=== PATIENT | male | born 1970 | race Asian ===

== ENCOUNTER 2017-09-09 17:38 | Inpatient (IN) | payer BC, OTHER ==
[2017-09-09 20:45] LABS: ADD MAN DIFF? NO
[2017-09-09 20:49] LABS: WHITE BLOOD COUNT 18.7 10^3/ul (4.8-10.8)
[2017-09-09 20:49] LABS: BASOPHIL # 0.1 10^3/ul (0.0-0.1); BASOPHILS % 0.4 % (0.0-2.0); EOSINOPHILS # 0.2 10^3/ul (0.0-0.5); EOSINOPHILS % 0.8 % (0.0-7.0); HEMOGLOBIN 16.1 g/dl (14.0-18.0); LYMPHOCYTES # 3.8 10^3/ul (0.8-2.9); LYMPHOCYTES % 20.1 % (15.0-51.0); MEAN CORPUSCULAR HEMOGLOBIN 28.3 pg (29.0-33.0); MEAN CORPUSCULAR HGB CONC 33.5 g/dl (32.0-37.0); MEAN CORPUSCULAR VOLUME 84.4 fl (82.0-101.0); MONOCYTE # 1.3 10^3/ul (0.3-0.9); NEUTROPHIL # 13.3 10^3/ul (1.6-7.5); NEUTROPHILS % 71.2 % (39.0-77.0); PLATELET COUNT 354 10^3/UL (140-415); RED BLOOD COUNT 5.69 10^6/ul (4.70-6.10); RED CELL DISTRIBUTION WIDTH 12.6 % (11.5-14.5)
[2017-09-09 21:07] LABS: LACTIC ACID 1.5 mmol/L (0.5-2.0)
[2017-09-09 21:09] LABS: ALANINE AMINOTRANSFERASE 33 IU/L (13-69); ALBUMIN/GLOBULIN RATIO 1.13; ALKALINE PHOSPHATASE 55 IU/L (42-121); ANION GAP 20 (8-16); ASPARTATE AMINO TRANSFERASE 21 IU/L (15-46); BILIRUBIN,INDIRECT 0.5 mg/dl (0-1.1); BILIRUBIN,TOTAL 0.5 mg/dl (0.2-1.3); BLOOD UREA NITROGEN 13 mg/dl (7-20); CALCIUM 9.7 mg/dl (8.4-10.2); CARBON DIOXIDE 25 mmol/L (21-31); CHLORIDE 101 mmol/L (97-110); CREATININE 1.09 mg/dl (0.61-1.24); GLUCOSE 110 mg/dl (70-220); INR 0.94; LIPASE 113 U/L (23-300); POTASSIUM 4.1 mmol/L (3.5-5.1); PROTIME 12.7 Sec (11.9-14.9); SODIUM 142 mmol/L (135-144); TOTAL PROTEIN 9.4 g/dl (6.1-8.1)
[2017-09-09 21:10] LABS: PARTIAL THROMBOPLASTIN TIME 31.8 Sec (25.0-35.0)
[2017-09-09] MEDS: morphine 4 MG/ML VIAL IV (21:12)
[2017-09-09] MEDS: ACETAMINOPHEN 325 MG TAB PO (21:12)
[2017-09-09] MEDS: SODIUM CHLORIDE 0.9% 1L BAG IV* (21:12)
[2017-09-09] MEDS: ONDANSETRON 4 MG INJ IV (21:12)
[2017-09-09] MEDS: PIPER-TAZO 3.375 GM IV (PMX) 100 ML IVPB (21:12)
[2017-09-09 23:17] LABS: LACTIC ACID 0.8 mmol/L (0.5-2.0)
[2017-09-10] MEDS ORDERED: morphine 2 MG INJ IV (00:30)
[2017-09-10] MEDS ORDERED: ALBUTEROL/IPRATROPIUM (NEB) 3 ML AMP HHN (00:30)
[2017-09-10] MEDS ORDERED: ACETAMINOPHEN 325 MG TAB PO (00:30)
[2017-09-10] MEDS ORDERED: DOCUSATE SODIUM 100 MG CAP PO (00:30)
[2017-09-10] MEDS ORDERED: ZOLPIDEM 5 MG TAB PO (00:30)
[2017-09-10] MEDS: 1/2 NS + KCL 20 MEQ 1,000 ML IV ×2 (00:44→10:26)
[2017-09-10 01:36] LABS: LACTIC ACID 0.8 mmol/L (0.5-2.0)
[2017-09-10] MEDS: HYDROCODONE/APAP (5/325) TAB PO ×2 (04:44→17:29)
[2017-09-10] MEDS: ONDANSETRON 4 MG INJ IV ×3 (04:51→20:30)
[2017-09-10] MEDS: PIPER-TAZO 3.375 GM IV (PMX) 100 ML IVPB ×4 (05:39→23:44)
[2017-09-10 05:43] LABS: ADD MAN DIFF? NO
[2017-09-10 05:49] LABS: BASOPHIL # 0.1 10^3/ul (0.0-0.1); BASOPHILS % 0.4 % (0.0-2.0); EOSINOPHILS # 0.2 10^3/ul (0.0-0.5); HEMATOCRIT 41.4 % (42.0-52.0); HEMOGLOBIN 13.7 g/dl (14.0-18.0); LYMPHOCYTES # 2.1 10^3/ul (0.8-2.9); LYMPHOCYTES % 19.2 % (15.0-51.0); MEAN CORPUSCULAR HEMOGLOBIN 28.1 pg (29.0-33.0); MEAN CORPUSCULAR HGB CONC 33.1 g/dl (32.0-37.0); MEAN CORPUSCULAR VOLUME 84.8 fl (82.0-101.0); MEAN PLATELET VOLUME 9.8 fl (7.4-10.4); MONOCYTES % 9.4 % (0.0-11.0); NEUTROPHIL # 7.6 10^3/ul (1.6-7.5); NEUTROPHILS % 68.5 % (39.0-77.0); PLATELET COUNT 289 10^3/UL (140-415); RED BLOOD COUNT 4.88 10^6/ul (4.70-6.10); RED CELL DISTRIBUTION WIDTH 12.5 % (11.5-14.5)
[2017-09-10 05:49] LABS: WHITE BLOOD COUNT 11.1 10^3/ul (4.8-10.8)
[2017-09-10 06:16] LABS: ANION GAP 14 (8-16); BLOOD UREA NITROGEN 12 mg/dl (7-20); CALCIUM 8.3 mg/dl (8.4-10.2); CARBON DIOXIDE 25 mmol/L (21-31); CHLORIDE 105 mmol/L (97-110); CREATININE 0.98 mg/dl (0.61-1.24); GLUCOSE 104 mg/dl (70-220); POTASSIUM 3.8 mmol/L (3.5-5.1); SODIUM 140 mmol/L (135-144)
[2017-09-10] MEDS ORDERED: ACETAMINOPHEN 1000 MG/100 ML IVPB (07:00)
[2017-09-10 07:17] LABS: HEMOGLOBIN A1C 5.8 % (0-5.9)
[2017-09-10 10:05] LABS: ADD UMIC NO; UR ASCORBIC ACID 40 mg/dL (NEGATIVE); UR BILIRUBIN (Dip) NEGATIVE (NEGATIVE); UR BLOOD (Dip) NEGATIVE (NEGATIVE); UR CLARITY CLEAR (CLEAR); UR COLOR YELLOW (YELLOW); UR GLUCOSE (Dip) NEGATIVE (NEGATIVE); UR KETONES (Dip) NEGATIVE (NEGATIVE); UR LEUKOCYTE ESTERASE (Dip) NEGATIVE Leu/ul (NEGATIVE); UR NITRITE (Dip) NEGATIVE (NEGATIVE); UR SPECIFIC GRAVITY (Dip) 1.016 (1.003-1.030); UR TOTAL PROTEIN (Dip) NEGATIVE (NEGATIVE); UR UROBILINOGEN (Dip) NEGATIVE (NEGATIVE)
[2017-09-10] MEDS ORDERED: LIDOCAINE 1%/EPI 30 ML INJ (10:59)
[2017-09-10] MEDS ORDERED: BUPIVACAINE 0.25%/EPI (SDV) 30 ML INJ (10:59)
[2017-09-10] MEDS: LIDOCAINE 1%/EPI 30 ML INJ INJ (11:24)
[2017-09-10] MEDS: BUPIVACAINE 0.25%/EPI (SDV) 30 ML INJ INJ (11:24)
[2017-09-10] MEDS ORDERED: ONDANSETRON 4 MG INJ IV ×3 (12:00→20:20)
[2017-09-10] MEDS ORDERED: MIDAZOLAM 1 MG/ML 2 ML INJ IV (12:00)
[2017-09-10] MEDS ORDERED: LABETALOL HCL 20MG INJ IV (12:00)
[2017-09-10] MEDS ORDERED: DIPHENHYDRAMINE 50 MG INJ IV (12:00)
[2017-09-10] MEDS ORDERED: hydrALAzine 20 MG INJ IV (12:00)
[2017-09-10] MEDS ORDERED: OXYCODONE/ACETAMINOPHEN (5/325) TAB PO ×2 (12:00)
[2017-09-10] MEDS ORDERED: METOCLOPRAMIDE 10 MG INJ IV (12:00)
[2017-09-10] MEDS ORDERED: HYDROmorphONE (0.2 MG/ML) 10ML SYG IV ×2 (12:00)
[2017-09-10] MEDS ORDERED: FENTAnyl 50 MCG/ML VIAL IV ×3 (12:00)
[2017-09-10] MEDS ORDERED: EPHEDrine SULFATE 50 MG/5 ML SYG IV (12:00)
[2017-09-10] MEDS ORDERED: BUPIVACAINE 0.25% (MPF) 30 ML INJ (12:24)
[2017-09-10] MEDS ORDERED: HYDROCODONE/APAP (5/325) TAB PO ×2 (12:30→16:00)
[2017-09-10] MEDS ORDERED: PROPOFOL 20 ML (13:01)
[2017-09-10] MEDS ORDERED: ROCURONIUM 50 MG INJ (13:01)
[2017-09-10] MEDS ORDERED: DEXAMETHASONE 4 MG/ML 1 ML INJ (13:02)
[2017-09-10] MEDS ORDERED: ONDANSETRON 4 MG INJ (13:03)
[2017-09-10] MEDS ORDERED: SUGAMMADEX SODIUM 200 MG/2 ML VIAL IV (13:03)
[2017-09-10] MEDS: HYDROmorphONE (0.2 MG/ML) 10ML SYG IV ×2 (13:20→13:39)
[2017-09-10] MEDS: MEPERIDINE 25 MG INJ IV (13:21)
[2017-09-10] MEDS: ALBUTEROL 0.083% (NEB) 2.5 MG/3 ML AMP HHN (14:04)
[2017-09-10 14:46] LABS: PHOSPHORUS 3.6 mg/dl (2.5-4.9)
[2017-09-10] MEDS: D5W-0.45 NACL + KCL 20 MEQ 1,000 ML IV ×2 (15:18→22:08)
[2017-09-10] MEDS: morphine 2 MG INJ IV (20:30)
[2017-09-11] MEDS: HYDROCODONE/APAP (5/325) TAB PO ×4 (00:42→18:29)
[2017-09-11] MEDS: ACETAMINOPHEN 325 MG TAB PO ×2 (02:41→20:36)
[2017-09-11] MEDS: ONDANSETRON 4 MG INJ IV ×2 (04:05→18:30)
[2017-09-11] MEDS: morphine 2 MG INJ IV (04:05)
[2017-09-11] MEDS: PIPER-TAZO 3.375 GM IV (PMX) 100 ML IVPB ×4 (05:30→23:55)
[2017-09-11 06:12] LABS: ADD MAN DIFF? NO
[2017-09-11 06:16] LABS: WHITE BLOOD COUNT 16.7 10^3/ul (4.8-10.8)
[2017-09-11 06:16] LABS: BASOPHILS % 0.1 % (0.0-2.0); HEMATOCRIT 39.4 % (42.0-52.0); HEMOGLOBIN 13.4 g/dl (14.0-18.0); LYMPHOCYTES # 1.2 10^3/ul (0.8-2.9); LYMPHOCYTES % 7.1 % (15.0-51.0); MEAN CORPUSCULAR HEMOGLOBIN 28.9 pg (29.0-33.0); MEAN CORPUSCULAR VOLUME 84.9 fl (82.0-101.0); MONOCYTE # 1.1 10^3/ul (0.3-0.9); MONOCYTES % 6.3 % (0.0-11.0); NEUTROPHIL # 14.3 10^3/ul (1.6-7.5); NEUTROPHILS % 85.7 % (39.0-77.0); PLATELET COUNT 283 10^3/UL (140-415); RED BLOOD COUNT 4.64 10^6/ul (4.70-6.10); RED CELL DISTRIBUTION WIDTH 12.2 % (11.5-14.5)
[2017-09-11] MEDS: ENOXAPARIN 40 MG/0.4 ML SYG SC (06:36)
[2017-09-11 07:31] LABS: ANION GAP 17 (8-16); BLOOD UREA NITROGEN 10 mg/dl (7-20); CARBON DIOXIDE 25 mmol/L (21-31); CHLORIDE 101 mmol/L (97-110); CREATININE 1.08 mg/dl (0.61-1.24); GLUCOSE 152 mg/dl (70-220); SODIUM 139 mmol/L (135-144)
[2017-09-11] MEDS: NACL 0.9% 3 ML SYG IV (21:55)
[2017-09-11] MEDS: D5W-0.45 NACL + KCL 20 MEQ 1,000 ML IV (21:57)
[2017-09-11] MEDS ORDERED: ACETAMINOPHEN 650 MG SUPP PR (22:00)
[2017-09-12] MEDS: PIPER-TAZO 3.375 GM IV (PMX) 100 ML IVPB ×4 (05:27→23:35)
[2017-09-12 06:28] LABS: ADD MAN DIFF? NO
[2017-09-12 06:44] LABS: WHITE BLOOD COUNT 14.7 10^3/ul (4.8-10.8)
[2017-09-12 06:44] LABS: BASOPHILS % 0.2 % (0.0-2.0); EOSINOPHILS % 0.1 % (0.0-7.0); HEMATOCRIT 38.9 % (42.0-52.0); HEMOGLOBIN 12.7 g/dl (14.0-18.0); LYMPHOCYTES # 1.8 10^3/ul (0.8-2.9); LYMPHOCYTES % 12.5 % (15.0-51.0); MEAN CORPUSCULAR HEMOGLOBIN 27.9 pg (29.0-33.0); MEAN CORPUSCULAR HGB CONC 32.6 g/dl (32.0-37.0); MEAN CORPUSCULAR VOLUME 85.5 fl (82.0-101.0); MEAN PLATELET VOLUME 10.4 fl (7.4-10.4); MONOCYTE # 0.9 10^3/ul (0.3-0.9); MONOCYTES % 6.2 % (0.0-11.0); NEUTROPHIL # 11.8 10^3/ul (1.6-7.5); NEUTROPHILS % 80.3 % (39.0-77.0); PLATELET COUNT 307 10^3/UL (140-415); RED BLOOD COUNT 4.55 10^6/ul (4.70-6.10); RED CELL DISTRIBUTION WIDTH 12.3 % (11.5-14.5)
[2017-09-12] MEDS: ENOXAPARIN 40 MG/0.4 ML SYG SC (06:46)
[2017-09-12 07:09] LABS: ANION GAP 14 (8-16); BLOOD UREA NITROGEN 12 mg/dl (7-20); CALCIUM 8.8 mg/dl (8.4-10.2); CARBON DIOXIDE 29 mmol/L (21-31); CHLORIDE 100 mmol/L (97-110); CREATININE 1.21 mg/dl (0.61-1.24); GLUCOSE 128 mg/dl (70-220); SODIUM 139 mmol/L (135-144)
[2017-09-12] MEDS: D5W-0.45 NACL + KCL 20 MEQ 1,000 ML IV ×3 (09:07→21:41)
[2017-09-12] MEDS: KETOROLAC 15 MG INJ IV ×3 (09:07→21:40)
[2017-09-12] MEDS: ONDANSETRON 4 MG INJ IV ×3 (09:16→21:45)
[2017-09-13] MEDS: D5W-0.45 NACL + KCL 20 MEQ 1,000 ML IV ×3 (03:31→18:20)
[2017-09-13] MEDS: PIPER-TAZO 3.375 GM IV (PMX) 100 ML IVPB ×4 (05:52→23:55)
[2017-09-13] MEDS: ONDANSETRON 4 MG INJ IV ×3 (06:01→19:37)
[2017-09-13] MEDS: KETOROLAC 15 MG INJ IV ×3 (06:02→19:37)
[2017-09-13] MEDS: ENOXAPARIN 40 MG/0.4 ML SYG SC (06:48)
[2017-09-13 07:27] LABS: ADD MAN DIFF? NO
[2017-09-13 07:31] LABS: WHITE BLOOD COUNT 11.6 10^3/ul (4.8-10.8)
[2017-09-13 07:31] LABS: BASOPHIL # 0.1 10^3/ul (0.0-0.1); BASOPHILS % 0.4 % (0.0-2.0); EOSINOPHILS # 0.4 10^3/ul (0.0-0.5); EOSINOPHILS % 3.1 % (0.0-7.0); HEMATOCRIT 40.2 % (42.0-52.0); HEMOGLOBIN 13.6 g/dl (14.0-18.0); LYMPHOCYTES # 2.5 10^3/ul (0.8-2.9); LYMPHOCYTES % 21.9 % (15.0-51.0); MEAN CORPUSCULAR HEMOGLOBIN 28.4 pg (29.0-33.0); MEAN CORPUSCULAR HGB CONC 33.8 g/dl (32.0-37.0); MEAN CORPUSCULAR VOLUME 83.9 fl (82.0-101.0); MONOCYTE # 0.9 10^3/ul (0.3-0.9); MONOCYTES % 8.1 % (0.0-11.0); NEUTROPHIL # 7.6 10^3/ul (1.6-7.5); NEUTROPHILS % 65.9 % (39.0-77.0); PLATELET COUNT 347 10^3/UL (140-415); RED BLOOD COUNT 4.79 10^6/ul (4.70-6.10); RED CELL DISTRIBUTION WIDTH 12.4 % (11.5-14.5)
[2017-09-13 07:56] LABS: ANION GAP 18 (8-16); BLOOD UREA NITROGEN 13 mg/dl (7-20); CALCIUM 8.9 mg/dl (8.4-10.2); CARBON DIOXIDE 23 mmol/L (21-31); CHLORIDE 105 mmol/L (97-110); CREATININE 1.19 mg/dl (0.61-1.24); GLUCOSE 104 mg/dl (70-220); POTASSIUM 3.9 mmol/L (3.5-5.1); SODIUM 142 mmol/L (135-144)
[2017-09-14] MEDS: ONDANSETRON 4 MG INJ IV ×3 (02:51→15:32)
[2017-09-14] MEDS: KETOROLAC 15 MG INJ IV ×3 (02:51→15:31)
[2017-09-14] MEDS: PIPER-TAZO 3.375 GM IV (PMX) 100 ML IVPB ×3 (05:44→17:47)
[2017-09-14] MEDS: ENOXAPARIN 40 MG/0.4 ML SYG SC (05:44)
[2017-09-14 06:19] LABS: ADD MAN DIFF? NO
[2017-09-14 06:30] LABS: BASOPHIL # 0.1 10^3/ul (0.0-0.1); BASOPHILS % 0.5 % (0.0-2.0); EOSINOPHILS # 0.5 10^3/ul (0.0-0.5); EOSINOPHILS % 5.3 % (0.0-7.0); HEMATOCRIT 38.4 % (42.0-52.0); HEMOGLOBIN 12.9 g/dl (14.0-18.0); LYMPHOCYTES % 22.3 % (15.0-51.0); MEAN CORPUSCULAR HEMOGLOBIN 28.7 pg (29.0-33.0); MEAN CORPUSCULAR HGB CONC 33.6 g/dl (32.0-37.0); MEAN CORPUSCULAR VOLUME 85.5 fl (82.0-101.0); MEAN PLATELET VOLUME 9.8 fl (7.4-10.4); MONOCYTE # 0.7 10^3/ul (0.3-0.9); MONOCYTES % 8.1 % (0.0-11.0); NEUTROPHIL # 5.7 10^3/ul (1.6-7.5); NEUTROPHILS % 62.8 % (39.0-77.0); PLATELET COUNT 349 10^3/UL (140-415); RED BLOOD COUNT 4.49 10^6/ul (4.70-6.10); RED CELL DISTRIBUTION WIDTH 12.1 % (11.5-14.5)
[2017-09-14 06:30] LABS: WHITE BLOOD COUNT 9.1 10^3/ul (4.8-10.8)
[2017-09-14 07:29] LABS: ANION GAP 15 (8-16); BLOOD UREA NITROGEN 13 mg/dl (7-20); CALCIUM 8.7 mg/dl (8.4-10.2); CARBON DIOXIDE 23 mmol/L (21-31); CHLORIDE 107 mmol/L (97-110); CREATININE 1.07 mg/dl (0.61-1.24); GLUCOSE 109 mg/dl (70-220); SODIUM 141 mmol/L (135-144)
[2017-09-14] MEDS: D5W-0.45 NACL + KCL 20 MEQ 1,000 ML IV (09:29)
== END 2017-09-14 18:55 | disposition home or self-care (01) | DRG 339 ==
LOC: E/R 17:38 → MS2 22:48
PROC: 0DTJ4ZZ Resection of Appendix, Percutaneous Endoscopic Approach (ICD-10-PCS; principal; 2017-09-10 12:16)
DX: K35.3 Acute appendicitis with localized peritonitis (principal); K56.7 Ileus, unspecified; J45.909 Unspecified asthma, uncomplicated; E78.5 Hyperlipidemia, unspecified
CPT/HCPCS: 36415; 74018; 74176; 80048; 80053; 81003; 83036; 83605; 83690; 83735; 84100; 85025; 85610; 85730; 87040; 87086; 88304; 93005; 96365; 96366; 96375; 99285-25

== ENCOUNTER 2018-08-18 09:06 | Emergency (ER) | payer BC ==
[2018-08-18] MEDS: HYDROCODONE/APAP (10/325) TAB PO (09:39)
== END 2018-08-18 11:04 | disposition home or self-care (01) ==
LOC: FTE 09:06
DX: M54.41 Lumbago with sciatica, right side (principal); J45.909 Unspecified asthma, uncomplicated
CPT/HCPCS: 72100; 99283-25

== ENCOUNTER 2018-09-04 15:44 | Emergency (ER) | payer BC ==
[2018-09-04] MEDS: DEXAMETHASONE 10 MG/ML 1 ML INJ IM (17:12)
[2018-09-04] MEDS: ALBUTEROL 0.083% (NEB) 2.5 MG/3 ML AMP NEB (17:26)
[2018-09-04] MEDS: IPRATROPIUM (NEB) 0.5 MG/2.5 ML AMP NEB (17:26)
== END 2018-09-04 19:00 | disposition home or self-care (01) ==
LOC: FTE 15:44
DX: J45.901 Unspecified asthma with (acute) exacerbation (principal)
CPT/HCPCS: 71046; 94664; 96372; 99284-25

== ENCOUNTER 2018-11-28 20:01 | Emergency (ER) | payer BC ==
[2018-11-28] MEDS ORDERED: morphine 4 MG/ML VIAL IV (22:29)
[2018-11-28] MEDS: ONDANSETRON 4 MG INJ IV (22:52)
[2018-11-28] MEDS: KETOROLAC 15 MG INJ IV (22:52)
[2018-11-28] MEDS: SOD CHLORIDE 0.9% 1,000 ML IV (22:52)
[2018-11-28 23:01] LABS: ADD MAN DIFF? NO
[2018-11-28 23:07] LABS: WHITE BLOOD COUNT 8.1 10^3/ul (4.8-10.8)
[2018-11-28 23:07] LABS: BASOPHIL # 0.1 10^3/ul (0.0-0.1); BASOPHILS % 1.2 % (0.0-2.0); EOSINOPHILS # 0.5 10^3/ul (0.0-0.5); EOSINOPHILS % 6.3 % (0.0-7.0); HEMATOCRIT 47.5 % (42.0-52.0); HEMOGLOBIN 15.8 g/dl (14.0-18.0); LYMPHOCYTES # 3.2 10^3/ul (0.8-2.9); LYMPHOCYTES % 39.2 % (15.0-51.0); MEAN CORPUSCULAR HEMOGLOBIN 28.6 pg (29.0-33.0); MEAN CORPUSCULAR HGB CONC 33.3 g/dl (32.0-37.0); MEAN CORPUSCULAR VOLUME 86.1 fl (82.0-101.0); MEAN PLATELET VOLUME 9.9 fl (7.4-10.4); MONOCYTE # 0.8 10^3/ul (0.3-0.9); MONOCYTES % 9.4 % (0.0-11.0); NEUTROPHIL # 3.5 10^3/ul (1.6-7.5); NEUTROPHILS % 43.3 % (39.0-77.0); PLATELET COUNT 319 10^3/UL (140-415); RED BLOOD COUNT 5.52 10^6/ul (4.70-6.10); RED CELL DISTRIBUTION WIDTH 12.7 % (11.5-14.5)
[2018-11-28 23:09] LABS: ADD UMIC NO; UR ASCORBIC ACID NEGATIVE (NEGATIVE); UR BILIRUBIN (Dip) NEGATIVE (NEGATIVE); UR BLOOD (Dip) NEGATIVE (NEGATIVE); UR CLARITY CLEAR (CLEAR); UR COLOR YELLOW (YELLOW); UR GLUCOSE (Dip) NEGATIVE (NEGATIVE); UR KETONES (Dip) NEGATIVE (NEGATIVE); UR LEUKOCYTE ESTERASE (Dip) NEGATIVE Leu/ul (NEGATIVE); UR NITRITE (Dip) NEGATIVE (NEGATIVE); UR SPECIFIC GRAVITY (Dip) 1.016 (1.003-1.030); UR TOTAL PROTEIN (Dip) NEGATIVE (NEGATIVE); UR UROBILINOGEN (Dip) NEGATIVE (NEGATIVE)
[2018-11-28 23:21] LABS: ALANINE AMINOTRANSFERASE 21 IU/L (13-69); ALBUMIN 4.6 g/dl (3.3-4.9); ALBUMIN/GLOBULIN RATIO 1.15; ALKALINE PHOSPHATASE 40 IU/L (42-121); ANION GAP 10 (5-13); ASPARTATE AMINO TRANSFERASE 20 IU/L (15-46); BILIRUBIN,INDIRECT 0.4 mg/dl (0-1.1); BILIRUBIN,TOTAL 0.4 mg/dl (0.2-1.3); BLOOD UREA NITROGEN 19 mg/dl (7-20); CALCIUM 9.7 mg/dl (8.4-10.2); CARBON DIOXIDE 29 mmol/L (21-31); CHLORIDE 102 mmol/L (97-110); CREATININE 1.23 mg/dl (0.61-1.24); Estimated GFR > 60 mL/min (>60); GLUCOSE 123 mg/dl (70-220); LIPASE 176 U/L (23-300); SODIUM 141 mmol/L (135-144); TOTAL PROTEIN 8.6 g/dl (6.1-8.1)
== END 2018-11-29 00:22 | disposition home or self-care (01) ==
LOC: FTE 11-29 00:22
DX: M54.6 Pain in thoracic spine (principal)
CPT/HCPCS: 36415; 74176; 80053; 81003; 83690; 85025; 96361; 96374; 96375; 99285-25